=== PATIENT | female | born 1945 | race Caucasian/White ===

== ENCOUNTER 2021-05-26 09:00 | Day surgery (SDC) | payer MEDICARE ==
[~2021-05-26 09:00] MED LIST: Propofol 200 MG/20 ML SDV ONE; fentaNYL 100 MCG/2 ML SDV ONE
[2021-05-26 10:07] LABS: CORONAVIRUS COVID-19 NAA NEGATIVE (NEGATIVE)
[2021-05-26] MEDS: Sodium Chloride 0.9% 1,000 ML IV SCH (10:23)
[2021-05-26 13:11] VITALS: BP 113/62; PULSE 73
--- NOTE | 2021-05-26 14:45 | PROC ---
DATE OF PROCEDURE: 05/26/2021 SURGEON: Mitchell An MD PREOPERATIVE DIAGNOSIS: Dysphagia. INDICATIONS: Kassi is a 76-year-old female who comes in for an esophagogastroduodenoscopy because she has had trouble swallowing. The risks and benefits were explained and she was taken to the OR. Anesthesia was given by nurse guard dance hall. PROCEDURE IN DETAIL: During the procedure, we used 120 mg of propofol and 100 mcg of fentanyl. The Olympus 180 scope was used, was placed into the pharynx into the esophagus without difficulty and advanced under direct vision. We did get into the stomach without difficulty. There was narrowing of the esophagus at the GE junction. There were retained food particles in the fundus. The fundus otherwise was unremarkable of what we could see. The greater and lesser curvatures were unremarkable. The pylorus was identified and it was passed into the first and second part of the duodenum. Upon retraction of the tube, no duodenal erythema, no abnormality. The tube was brought back into the stomach. Re- evaluation of the stomach showed no changes. The Savary dilator guidewire was placed into the stomach and the gastrostomy tube was slowly retracted with close observation of the esophagus, again noted the narrowing of the GE junction. The remainder of the esophagus was unremarkable. The vocal cords were unremarkable. The tube was removed. The patient tolerated the procedure well. The Savary guidewire was left in place. We then used a 60- Trin[place] dilator and placed that over the guidewire and dilated the esophagus to 60-Trinidadian and the tube was left in place for over a minute. Upon removal of the tube and the guidewire revealed no blood or no abnormality. The patient tolerated both procedures very well. 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 We will re-evaluate in the office as needed. Mitchell An MD /[id number]
== END 2021-05-26 13:28 | disposition home or self-care (01) ==
LOC: JP.SDS 09:00
PROVIDERS: ATTEND Internal Medicine
DX: K22.2 Esophageal obstruction (principal); B96.81 Helicobacter pylori [H. pylori] as the cause of diseases classified elsewhere; F17.200 Nicotine dependence, unspecified, uncomplicated; J44.9 Chronic obstructive pulmonary disease, unspecified; Z88.0 Allergy status to penicillin; Z01.812 Encounter for preprocedural laboratory examination; Z20.822 Contact with and (suspected) exposure to COVID-19
CPT/HCPCS: 0241U; J2704; J3010; J7030

== ENCOUNTER 2023-02-14 02:55 | Inpatient (IN) | payer MEDICARE ==
[2023-02-14] MEDS ORDERED: methylPREDNISolone Sodium Succinate 125 MG/2 ML SDV IVPUSH ONE (03:08)
[2023-02-14] MEDS ORDERED: Levalbuterol HCl 1.25 MG/3 ML Neb NEB ONE (03:13)
[2023-02-14 03:38] LABS: ESTIMATED GFR 52 mL/min (>60)
[2023-02-14] MEDS ORDERED: Albuterol 0.083% 2.5 MG/3 ML Neb Soln NEB ONE (03:38)
[2023-02-14] MEDS ORDERED: Morphine 2 MG/ML SYRINGE ONE (03:40)
[2023-02-14] MEDS ORDERED: Albuterol 0.083% 2.5 MG/3 ML Neb Soln ONE (03:40)
[2023-02-14] MEDS ORDERED: cefTRIAXone 1 GM in Sodium Chloride 0.9% 50 ML IV ONE (03:50)
[2023-02-14] MEDS ORDERED: cefTRIAXone 1 GM AdvVial IV ONE (03:53)
[2023-02-14 04:00] LABS: CORONAVIRUS COVID-19 NAA NEGATIVE (NEGATIVE)
[2023-02-14] MEDS ORDERED: Morphine 2 MG/ML SYRINGE IVPUSH ONE (04:04)
[2023-02-14] MEDS ORDERED: Doxycycline 100 MG in Sodium Chloride 0.9% 100 ML IV ONE ×2 (04:04→08:15)
[2023-02-14] MEDS ORDERED: Sodium Chloride 0.9% 500 ML IV SCH (06:30)
[2023-02-14] MEDS ORDERED: Albuterol 90 MCG/6.7 GM Inhaler INH SCH (08:00)
[2023-02-14] MEDS: Tiotropium Bromide 4 GM Inhalation Spray (2.5mcg/1 dose; 10 doses) INH SCH (08:27)
[2023-02-14] MEDS ORDERED: hydrOXYzine HCl 25 MG Tab PO PRN (08:28)
[2023-02-14] MEDS: Formoterol/Mometasone 100-5 MCG 8.8 GM Inhaler IH SCH ×2 (08:29→20:32)
[2023-02-14] MEDS: predniSONE 5 MG Tab PO SCH ×2 (08:33→17:03)
[2023-02-14] MEDS: Cetirizine 10 MG Tab PO SCH (08:33)
[2023-02-14] MEDS ORDERED: Albuterol 90 MCG/6.7 GM Inhaler INH PRN (09:00)
[2023-02-14] MEDS ORDERED: Albuterol/Ipratropium 3.0-0.5 MG/3 ML Neb Soln INH SCH (09:00)
[2023-02-14] MEDS: FLAX PO SCH (09:47)
[2023-02-14] MEDS: BORAGE PO SCH (09:47)
[2023-02-14] MEDS: [UNRECOGNIZED DRUG - OTHER] PO SCH (09:47)
[2023-02-14] MEDS: FISH OIL PO SCH (09:47)
[2023-02-14] MEDS: Famotidine 20 MG Tab PO SCH (14:27)
[2023-02-14] MEDS: Albuterol/Ipratropium 3.0-0.5 MG/3 ML Neb Soln INH SCH (20:37)
[2023-02-15] MEDS: cefTRIAXone 1 GM in Sodium Chloride 0.9% 50 ML IV SCH (04:13)
[2023-02-15] MEDS: Formoterol/Mometasone 100-5 MCG 8.8 GM Inhaler IH SCH ×2 (07:01→21:09)
[2023-02-15] MEDS: Albuterol/Ipratropium 3.0-0.5 MG/3 ML Neb Soln INH SCH ×2 (07:01→21:10)
[2023-02-15] MEDS: Famotidine 20 MG Tab PO SCH (08:03)
[2023-02-15] MEDS: predniSONE 5 MG Tab PO SCH ×2 (08:04→17:24)
[2023-02-15] MEDS: Cetirizine 10 MG Tab PO SCH (08:04)
[2023-02-15] MEDS: Tiotropium Bromide 4 GM Inhalation Spray (2.5mcg/1 dose; 10 doses) INH SCH (08:13)
[2023-02-15] MEDS: Acetaminophen 325 MG Tab PO PRN ×2 (08:15→21:10)
[2023-02-15] MEDS: BORAGE PO SCH (10:27)
[2023-02-15] MEDS: [UNRECOGNIZED DRUG - OTHER] PO SCH (10:27)
[2023-02-15] MEDS: FLAX PO SCH (10:27)
[2023-02-15] MEDS: FISH OIL PO SCH (10:27)
[2023-02-15] MEDS: Doxycycline 100 MG Cap PO SCH ×2 (10:35→21:10)
[2023-02-16] MEDS: cefTRIAXone 1 GM in Sodium Chloride 0.9% 50 ML IV SCH (04:41)
[2023-02-16] MEDS: Albuterol/Ipratropium 3.0-0.5 MG/3 ML Neb Soln INH SCH ×2 (07:05→21:15)
[2023-02-16] MEDS: Formoterol/Mometasone 100-5 MCG 8.8 GM Inhaler IH SCH ×2 (07:05→21:09)
[2023-02-16] MEDS: Tiotropium Bromide 4 GM Inhalation Spray (2.5mcg/1 dose; 10 doses) INH SCH (08:41)
[2023-02-16] MEDS: predniSONE 5 MG Tab PO SCH ×2 (08:44→17:45)
[2023-02-16] MEDS: BORAGE PO SCH (08:45)
[2023-02-16] MEDS: [UNRECOGNIZED DRUG - OTHER] PO SCH (08:45)
[2023-02-16] MEDS: FISH OIL PO SCH (08:45)
[2023-02-16] MEDS: FLAX PO SCH (08:45)
[2023-02-16] MEDS: Famotidine 20 MG Tab PO SCH (08:46)
[2023-02-16] MEDS: Doxycycline 100 MG Cap PO SCH ×2 (08:46→21:09)
[2023-02-16] MEDS: Cetirizine 10 MG Tab PO SCH (08:47)
[2023-02-16] MEDS: Acetaminophen 325 MG Tab PO PRN (18:35)
[2023-02-17] MEDS: cefTRIAXone 1 GM in Sodium Chloride 0.9% 50 ML IV SCH (04:00)
[2023-02-17] MEDS: Albuterol/Ipratropium 3.0-0.5 MG/3 ML Neb Soln INH SCH ×2 (07:38→22:24)
[2023-02-17] MEDS: Formoterol/Mometasone 100-5 MCG 8.8 GM Inhaler IH SCH ×2 (07:38→22:20)
[2023-02-17] MEDS: Tiotropium Bromide 4 GM Inhalation Spray (2.5mcg/1 dose; 10 doses) INH SCH (07:40)
[2023-02-17] MEDS: predniSONE 5 MG Tab PO SCH ×2 (08:19→17:43)
[2023-02-17] MEDS: FISH OIL PO SCH (08:20)
[2023-02-17] MEDS: Famotidine 20 MG Tab PO SCH (08:20)
[2023-02-17] MEDS: FLAX PO SCH (08:20)
[2023-02-17] MEDS: [UNRECOGNIZED DRUG - OTHER] PO SCH (08:20)
[2023-02-17] MEDS: BORAGE PO SCH (08:20)
[2023-02-17] MEDS: Cetirizine 10 MG Tab PO SCH (08:21)
[2023-02-17] MEDS: Doxycycline 100 MG Cap PO SCH ×2 (08:21→22:20)
[2023-02-17] MEDS: Fluticasone NASAL Spray 16 GM Bottle NAS SCH (17:12)
[2023-02-18] MEDS: cefTRIAXone 1 GM in Sodium Chloride 0.9% 50 ML IV SCH ×2 (04:54→05:59)
[2023-02-18] MEDS ORDERED: cefTRIAXone 1 GM, Lidocaine 1% 2.1 ML IM ONE ×2 (05:59)
[2023-02-18] MEDS ORDERED: cefTRIAXone 1 GM Vial ONE (06:11)
[2023-02-18] MEDS: Acetaminophen 325 MG Tab PO PRN ×2 (06:29→16:48)
[2023-02-18] MEDS: Formoterol/Mometasone 100-5 MCG 8.8 GM Inhaler IH SCH ×2 (07:22→21:08)
[2023-02-18] MEDS: Albuterol/Ipratropium 3.0-0.5 MG/3 ML Neb Soln INH SCH ×2 (07:22→20:55)
[2023-02-18] MEDS: FLAX PO SCH (08:09)
[2023-02-18] MEDS: BORAGE PO SCH (08:09)
[2023-02-18] MEDS: FISH OIL PO SCH (08:09)
[2023-02-18] MEDS: [UNRECOGNIZED DRUG - OTHER] PO SCH (08:09)
[2023-02-18] MEDS: predniSONE 5 MG Tab PO SCH ×2 (08:09→16:50)
[2023-02-18] MEDS: Doxycycline 100 MG Cap PO SCH ×2 (08:10→21:10)
[2023-02-18] MEDS: Famotidine 20 MG Tab PO SCH (08:10)
[2023-02-18] MEDS: Cetirizine 10 MG Tab PO SCH (08:10)
[2023-02-18] MEDS: Fluticasone NASAL Spray 16 GM Bottle NAS SCH (08:11)
[2023-02-18] MEDS: Tiotropium Bromide 4 GM Inhalation Spray (2.5mcg/1 dose; 10 doses) INH SCH (08:22)
[2023-02-18] MEDS ORDERED: Ibuprofen 800 MG Tab PO ONE (17:21)
[2023-02-19] MEDS: Formoterol/Mometasone 100-5 MCG 8.8 GM Inhaler IH SCH (07:01)
[2023-02-19] MEDS: Albuterol/Ipratropium 3.0-0.5 MG/3 ML Neb Soln INH SCH (07:01)
[2023-02-19] MEDS: Tiotropium Bromide 4 GM Inhalation Spray (2.5mcg/1 dose; 10 doses) INH SCH (08:05)
[2023-02-19] MEDS: Cetirizine 10 MG Tab PO SCH (08:46)
[2023-02-19] MEDS: FLAX PO SCH (08:46)
[2023-02-19] MEDS: FISH OIL PO SCH (08:46)
[2023-02-19] MEDS: predniSONE 5 MG Tab PO SCH (08:46)
[2023-02-19] MEDS: [UNRECOGNIZED DRUG - OTHER] PO SCH (08:46)
[2023-02-19] MEDS: BORAGE PO SCH (08:46)
[2023-02-19] MEDS: Fluticasone NASAL Spray 16 GM Bottle NAS SCH (08:47)
[2023-02-19] MEDS: Doxycycline 100 MG Cap PO SCH (08:47)
[2023-02-19] MEDS: Famotidine 20 MG Tab PO SCH (08:47)
== END 2023-02-19 15:35 | disposition home or self-care (01) | DRG 195 ==
LOC: JP.ED 02:55 → JP.ICU 07:18
PROVIDERS: ADMIT Internal Medicine; ATTEND Internal Medicine
PROC: 09JK8ZZ Inspection of Nasal Mucosa and Soft Tissue, Via Natural or Artificial Opening Endoscopic (ICD-10-PCS; principal; 2023-02-19)
DX: J18.9 Pneumonia, unspecified organism (principal); J43.9 Emphysema, unspecified; Z96.649 Presence of unspecified artificial hip joint; M19.90 Unspecified osteoarthritis, unspecified site; Z66 Do not resuscitate; H04.559 Acquired stenosis of unspecified nasolacrimal duct; Z20.822 Contact with and (suspected) exposure to COVID-19; R06.03 Acute respiratory distress; H26.9 Unspecified cataract; Z86.16 Personal history of COVID-19; Z79.51 Long term (current) use of inhaled steroids; Z79.52 Long term (current) use of systemic steroids; Z87.891 Personal history of nicotine dependence; Z88.0 Allergy status to penicillin; Z79.899 Other long term (current) drug therapy
CPT/HCPCS: 0241U; 36415; 36600; 71045; 71045-26; 71046; 71046-26; 74176; 80053; 82803; 83605; 84145; 85025; 87070; 87102; 87107; 87205; 87206; 94640; 94644; 94645; 96365; 96367; 96375; 97110-GP; 97161-GP; 97530-GP; 99285; 99285-25; A9270-GY; J0696; J2270; J2930; J3490; J7030; J7512; J7612-GY; J7620

== ENCOUNTER 2023-06-17 09:44 | Emergency (ER) | payer MEDICARE ==
[2023-06-17] MEDS ORDERED: fentaNYL 100 MCG/2 ML SDV IM ONE (11:01)
== END 2023-06-17 13:00 | disposition home or self-care (01) ==
LOC: JP.ED 09:44
DX: S52.125A Nondisplaced fracture of head of left radius, initial encounter for closed fracture (principal); Z87.891 Personal history of nicotine dependence; Z86.16 Personal history of COVID-19; J44.9 Chronic obstructive pulmonary disease, unspecified; Z79.899 Other long term (current) drug therapy; Z88.0 Allergy status to penicillin; W01.0XXA Fall on same level from slipping, tripping and stumbling without subsequent striking against object, initial encounter; Y92.009 Unspecified place in unspecified non-institutional (private) residence as the place of occurrence of the external cause
CPT/HCPCS: 29125; 73080; 73110; 96372; 99283; J3010; 99282

== ENCOUNTER 2023-07-30 06:14 | Day surgery (SDC) | payer MEDICARE ==
[2023-07-30] MEDS ORDERED: Bupivacaine 0.5% 50 ML MDV ONE (06:37)
[2023-07-30 06:46] LABS: HEMATOCRIT 38.6 % (34.3-46.0); HEMOGLOBIN 12.3 g/dL (11.2-15.5); MEAN CORPUSCULAR HEMOGLOBIN 29.3 pg (31.6-35.5); MEAN CORPUSCULAR HGB CONC 31.9 g/dL (31.6-35.5); MEAN CORPUSCULAR VOLUME 91.9 fL (81.4-99.0); RED BLOOD CELL COUNT 4.2 M/uL (3.77-5.24)
[2023-07-30] MEDS ORDERED: Bupivacaine 0.5% 30 ML SDV ONE (06:46)
[2023-07-30] MEDS ORDERED: Lactated Ringers 1,000 ML IV SCH (07:00)
[2023-07-30 07:01] LABS: ANION GAP 8.4 mmol/L (5.0-14.0); CALCIUM 8.6 mg/dL (8.5-10.1); CREATININE 1.1 mg/dL (0.6-1.0); EST CRCL DRUG DOSING (CG) 31.39 mL/min
[2023-07-30] MEDS ORDERED: Nozin Nasal Sanitizer NASBOTH ONE (07:04)
[2023-07-30] MEDS ORDERED: Midazolam 1 MG/ML 2 ML SDV ONE (07:22)
[2023-07-30] MEDS ORDERED: Propofol 200 MG/20 ML SDV ONE (07:22)
[2023-07-30] MEDS ORDERED: fentaNYL 100 MCG/2 ML SDV ONE (07:22)
[2023-07-30] MEDS ORDERED: Lidocaine 0.5% 50 ML SDV ONE (07:23)
[2023-07-30] MEDS ORDERED: ceFAZolin 1 GM in Premix Bag 1 BAG IV ONE (07:30)
[2023-07-30] MEDS ORDERED: traMADol 50 MG Tab PO PRN (09:40)
== END 2023-07-30 10:35 | disposition home or self-care (01) ==
LOC: JP.SDS 06:14
PROVIDERS: ATTEND Specialist
DX: G56.02 Carpal tunnel syndrome, left upper limb (principal); J44.9 Chronic obstructive pulmonary disease, unspecified; Z88.0 Allergy status to penicillin
CPT/HCPCS: 36415; 64721; 80048; 85027; A9270; J0690; J2250; J2704; J3010; J3490; J7120

== ENCOUNTER 2023-09-01 13:12 | Inpatient (IN) | payer MEDICARE ==
[2023-09-01 15:00] LABS: BASOPHILS ABSOLUTE AUTO 0.05 K/uL (0.00-0.10); BASOPHILS PERCENT AUTO 0.2 % (0.1-1.3); HEMATOCRIT 38.2 % (34.3-46.0); HEMOGLOBIN 12.4 g/dL (11.2-15.5); IMMATURE GRAN ABSOLUTE AUTO 0.25 K/uL (0.00-0.23); IMMATURE GRAN PERCENT AUTO 0.8 % (0.0-0.7); LYMPHOCYTES ABSOLUTE AUTO 0.48 K/uL (0.8-3.3); LYMPHOCYTES PERCENT AUTO 1.5 % (11.4-47.7); MEAN CORPUSCULAR HEMOGLOBIN 29.5 pg (31.6-35.5); MEAN CORPUSCULAR HGB CONC 32.5 g/dL (31.6-35.5); MEAN CORPUSCULAR VOLUME 90.7 fL (81.4-99.0); MONOCYTES ABSOLUTE AUTO 0.97 K/uL (0.20-0.90); NEUTROPHILS ABSOLUTE AUTO 30.98 K/uL (1.0-7.6); NEUTROPHILS PERCENT AUTO 94.5 % (40.0-78.1); PLATELET COUNT,PLT 294 K/uL (130-375); RED BLOOD CELL COUNT 4.21 M/uL (3.77-5.24)
[2023-09-01 15:03] LABS: EOSINOPHILS ABSOLUTE AUTO 0.01 K/uL (0.00-0.40); WHITE BLOOD CELL COUNT,WBC 32.7 K/uL (3.2-11.0)
[2023-09-01] MEDS ORDERED: Levofloxacin/Dextrose 5%-Water 500 MG in Premix Bag 1 BAG IV ONE (15:11)
[2023-09-01 15:16] LABS: ANION GAP 14.1 mmol/L (5.0-14.0); CALCIUM 8.3 mg/dL (8.5-10.1); CREATININE 1.6 mg/dL (0.6-1.0); EST CRCL DRUG DOSING (CG) 20.54 mL/min; POTASSIUM,K 4.1 mmol/L (3.6-5.2)
[2023-09-01 16:50] LABS: CORONAVIRUS COVID-19 NAA NEGATIVE (NEGATIVE); INFLUENZA A NAA NEGATIVE (NEGATIVE); INFLUENZA B NAA NEGATIVE (NEGATIVE); RESPIRATORY SYNCYTIAL VIR NAA NEGATIVE (NEGATIVE)
[2023-09-01] MEDS ORDERED: Albuterol/Ipratropium 3.0-0.5 MG/3 ML Neb Soln INH PRN (17:35)
[2023-09-01] MEDS ORDERED: Albuterol 6.7 GM Inhaler INH PRN (17:35)
[2023-09-01] MEDS: Acetaminophen 500 MG Tab PO PRN (20:04)
[2023-09-01] MEDS: diphenhydrAMINE 25 MG Cap PO PRN (20:05)
[2023-09-01] MEDS: Formoterol/Mometasone 200-5 MCG 8.8 GM Inhaler IH SCH (20:06)
[2023-09-02] MEDS: diphenhydrAMINE 25 MG Cap PO PRN ×3 (02:33→22:30)
[2023-09-02 03:33] LABS: BASOPHILS ABSOLUTE AUTO 0.04 K/uL (0.00-0.10); BASOPHILS PERCENT AUTO 0.1 % (0.1-1.3); EOSINOPHILS ABSOLUTE AUTO 0.03 K/uL (0.00-0.40); EOSINOPHILS PERCENT AUTO 0.1 % (0.0-5.4); HEMATOCRIT 36.4 % (34.3-46.0); IMMATURE GRAN ABSOLUTE AUTO 0.24 K/uL (0.00-0.23); IMMATURE GRAN PERCENT AUTO 0.8 % (0.0-0.7); LYMPHOCYTES ABSOLUTE AUTO 0.69 K/uL (0.8-3.3); LYMPHOCYTES PERCENT AUTO 2.2 % (11.4-47.7); MEAN CORPUSCULAR HEMOGLOBIN 29.7 pg (31.6-35.5); MEAN CORPUSCULAR VOLUME 90.1 fL (81.4-99.0); MONOCYTES ABSOLUTE AUTO 0.84 K/uL (0.20-0.90); MONOCYTES PERCENT AUTO 2.7 % (3.3-12.6); NEUTROPHILS ABSOLUTE AUTO 28.93 K/uL (1.0-7.6); NEUTROPHILS PERCENT AUTO 94.1 % (40.0-78.1); PLATELET COUNT,PLT 291 K/uL (130-375); RED BLOOD CELL COUNT 4.04 M/uL (3.77-5.24)
[2023-09-02 03:36] LABS: WHITE BLOOD CELL COUNT,WBC 30.8 K/uL (3.2-11.0)
[2023-09-02] MEDS: Formoterol/Mometasone 200-5 MCG 8.8 GM Inhaler IH SCH ×2 (08:19→20:13)
[2023-09-02] MEDS: Tiotropium Bromide 4 GM Inhalation Spray (2.5mcg/1 dose; 10 doses) INH SCH (08:20)
[2023-09-02] MEDS ORDERED: Formoterol/Mometasone 200-5 MCG 8.8 GM Inhaler IH SCH (09:00)
[2023-09-02] MEDS: predniSONE 5 MG Tab PO SCH (11:34)
[2023-09-02] MEDS: Acetaminophen 500 MG Tab PO PRN (14:32)
[2023-09-02] MEDS ORDERED: Levofloxacin/Dextrose 5%-Water 750 MG in Premix Bag 1 BAG IV SCH (15:00)
[2023-09-02] MEDS ORDERED: Melatonin 3 MG Tab PO PRN (22:34)
[2023-09-03 07:33] LABS: BASOPHILS PERCENT AUTO 0.1 % (0.1-1.3); EOSINOPHILS PERCENT AUTO 0.1 % (0.0-5.4); HEMATOCRIT 37.8 % (34.3-46.0); HEMOGLOBIN 12.4 g/dL (11.2-15.5); IMMATURE GRAN ABSOLUTE AUTO 0.13 K/uL (0.00-0.23); IMMATURE GRAN PERCENT AUTO 0.7 % (0.0-0.7); LYMPHOCYTES ABSOLUTE AUTO 0.78 K/uL (0.8-3.3); LYMPHOCYTES PERCENT AUTO 3.9 % (11.4-47.7); MEAN CORPUSCULAR HEMOGLOBIN 29.7 pg (31.6-35.5); MEAN CORPUSCULAR HGB CONC 32.8 g/dL (31.6-35.5); MEAN CORPUSCULAR VOLUME 90.6 fL (81.4-99.0); MONOCYTES ABSOLUTE AUTO 0.68 K/uL (0.20-0.90); MONOCYTES PERCENT AUTO 3.4 % (3.3-12.6); NEUTROPHILS ABSOLUTE AUTO 18.28 K/uL (1.0-7.6); NEUTROPHILS PERCENT AUTO 91.8 % (40.0-78.1); PLATELET COUNT,PLT 329 K/uL (130-375); RED BLOOD CELL COUNT 4.17 M/uL (3.77-5.24); WHITE BLOOD CELL COUNT,WBC 19.9 K/uL (3.2-11.0)
[2023-09-03 07:34] LABS: BASOPHILS ABSOLUTE AUTO 0.02 K/uL (0.00-0.10); EOSINOPHILS ABSOLUTE AUTO 0.01 K/uL (0.00-0.40)
[2023-09-03] MEDS: Formoterol/Mometasone 200-5 MCG 8.8 GM Inhaler IH SCH ×2 (08:02→20:15)
[2023-09-03] MEDS: Tiotropium Bromide 4 GM Inhalation Spray (2.5mcg/1 dose; 10 doses) INH SCH (08:03)
[2023-09-03] MEDS: predniSONE 5 MG Tab PO SCH (08:18)
[2023-09-03] MEDS: diphenhydrAMINE 25 MG Cap PO PRN ×2 (15:33→21:26)
[2023-09-03] MEDS: Acetaminophen 500 MG Tab PO PRN (20:15)
[2023-09-04 05:32] LABS: BASOPHILS PERCENT AUTO 0.1 % (0.1-1.3); EOSINOPHILS ABSOLUTE AUTO 0.06 K/uL (0.00-0.40); EOSINOPHILS PERCENT AUTO 0.4 % (0.0-5.4); HEMATOCRIT 36.6 % (34.3-46.0); HEMOGLOBIN 12.1 g/dL (11.2-15.5); IMMATURE GRAN ABSOLUTE AUTO 0.21 K/uL (0.00-0.23); IMMATURE GRAN PERCENT AUTO 1.4 % (0.0-0.7); LYMPHOCYTES ABSOLUTE AUTO 0.82 K/uL (0.8-3.3); LYMPHOCYTES PERCENT AUTO 5.3 % (11.4-47.7); MEAN CORPUSCULAR HEMOGLOBIN 29.7 pg (31.6-35.5); MEAN CORPUSCULAR HGB CONC 33.1 g/dL (31.6-35.5); MEAN CORPUSCULAR VOLUME 89.7 fL (81.4-99.0); MONOCYTES ABSOLUTE AUTO 0.98 K/uL (0.20-0.90); MONOCYTES PERCENT AUTO 6.3 % (3.3-12.6); NEUTROPHILS ABSOLUTE AUTO 13.36 K/uL (1.0-7.6); NEUTROPHILS PERCENT AUTO 86.5 % (40.0-78.1); PLATELET COUNT,PLT 305 K/uL (130-375); RED BLOOD CELL COUNT 4.08 M/uL (3.77-5.24); WHITE BLOOD CELL COUNT,WBC 15.4 K/uL (3.2-11.0)
[2023-09-04 05:34] LABS: BASOPHILS ABSOLUTE AUTO 0.01 K/uL (0.00-0.10)
[2023-09-04 05:42] LABS: ANION GAP 9.2 mmol/L (5.0-14.0); CALCIUM 8.7 mg/dL (8.5-10.1); CREATININE 1.1 mg/dL (0.6-1.0); EST CRCL DRUG DOSING (CG) 29.19 mL/min; POTASSIUM,K 4.1 mmol/L (3.6-5.2)
[2023-09-04] MEDS: Formoterol/Mometasone 200-5 MCG 8.8 GM Inhaler IH SCH (08:06)
[2023-09-04] MEDS: Tiotropium Bromide 4 GM Inhalation Spray (2.5mcg/1 dose; 10 doses) INH SCH (08:06)
[2023-09-04] MEDS: predniSONE 5 MG Tab PO SCH (08:23)
[2023-09-04] MEDS ORDERED: Levofloxacin/Dextrose 5%-Water 750 MG in Premix Bag 1 BAG IV ONE (12:30)
== END 2023-09-04 14:02 | disposition home or self-care (01) | DRG 195 ==
LOC: JP.ED 13:12 → JP.MS 16:26
PROVIDERS: ADMIT Internal Medicine; ATTEND Internal Medicine
DX: J18.9 Pneumonia, unspecified organism (principal); Z20.822 Contact with and (suspected) exposure to COVID-19; J44.9 Chronic obstructive pulmonary disease, unspecified; Z99.81 Dependence on supplemental oxygen; J43.9 Emphysema, unspecified; Z86.16 Personal history of COVID-19; Z87.891 Personal history of nicotine dependence; L29.9 Pruritus, unspecified; Z96.649 Presence of unspecified artificial hip joint; M19.90 Unspecified osteoarthritis, unspecified site; Z88.0 Allergy status to penicillin; Z79.899 Other long term (current) drug therapy; Z98.890 Other specified postprocedural states; Z79.51 Long term (current) use of inhaled steroids; Z98.49 Cataract extraction status, unspecified eye
CPT/HCPCS: 0241U; 36415; 71046; 80048; 83605; 85025; 94640; 94667; 94668; 94762; 96365; 99284; 99285; A9270-GY; J1956; J7512